=== PATIENT | female | born 2000 | race African-American/Black ===

== ENCOUNTER → 2025-07-22 | Outpatient (REF) | LOC: M LAB 11:10 | PROVIDERS: ATTEND Family Medicine | DX: Z02.89 Encounter for other administrative examinations (principal) ==

== ENCOUNTER → 2025-08-07 | Outpatient (CLI) | payer OTHER ==
[2025-08-07 17:09] LABS: LDH LACTATE DEHYDROGENASE 136 U/L (120-246)
[2025-08-07 17:10] LABS: ALT/SGPT 31 U/L (7.0-40); AST/SGOT 15 U/L (<34); CREATININE FOR GFR 0.78 MG/DL (0.55-1.30); GLOMERULAR FILTRATION RATE > 90.0 (>60)
[2025-08-07 17:23] LABS: PLATELET COUNT, AUTOMATED 333 10^3/uL (150-450); TOTAL PROTEIN,RANDOM URINE 21.5 MG/DL (0.0-14.0)
[2025-08-07 17:42] LABS: HIV 1&2 SCREEN NEGATIVE (NEGATIVE)
[2025-08-07 17:50] LABS: HEPATITIS C VIRUS ABY INDEX < 0.02 INDEX (<0.8)
[2025-08-08 12:48] LABS: Trichomonas vaginalis (AMP) NOT DETECTED (NEGATIVE)
[2025-08-08 13:12] LABS: GC DNA AMPLIFICATION NEGATIVE (NEGATIVE)
== END ==
LOC: M PLALAB 13:48
PROVIDERS: ATTEND Nurse Practitioner Family
DX: Z34.80 Encounter for supervision of other normal pregnancy, unspecified trimester (principal)

== ENCOUNTER → 2025-08-07 | Outpatient (REF) | payer OTHER | LOC: M PLALAB 13:26 | PROVIDERS: ATTEND Nurse Practitioner Family | DX: Z53.9 Procedure and treatment not carried out, unspecified reason (principal) ==

== ENCOUNTER 2025-08-31 11:23 | Emergency (ER) | payer OTHER ==
[~2025-08-31] VITALS: Ht 154.9 cm; Wt 68.2 kg
[2025-08-31 11:25] VITALS: BP 138/66; TEMP 98.9; O2SAT 99
[2025-08-31 11:57] LABS: APPEARANCE, URINE CLEAR (CLEAR); BACTERIA, URINE AUTO NEGATIVE (NEGATIVE); BILIRUBIN, URINE AUTO NEGATIVE (NEGATIVE); BLOOD, URINE BLOOD NEGATIVE (NEGATIVE); GLUCOSE, URINE (UA) AUTO NEGATIVE (NEGATIVE); KETONE, URINE AUTO NEGATIVE (NEGATIVE); LEUKOCYTE ESTERASE, URINE AUTO NEGATIVE (NEGATIVE); NITRITE, URINE AUTO NEGATIVE (NEGATIVE); PROTEIN, URINE AUTO NEGATIVE (NEGATIVE); RBC, URINE AUTO 1 /HPF (0-3); SPECIFIC GRAVITY URINE AUTO 1.010 (1.002-1.035); SQUAMOUS EPITHELIAL CELL UR AU 1 /HPF (0-6); UROBILINOGEN, URINE AUTO 0.2 mg/dL (0.0-2.0); WBC, URINE AUTO 0 /HPF (0-3)
[2025-08-31 11:58] LABS: BASO # 0.0 10^3/uL (0.0-0.2); BASO % 0.3 % (0.0-1.0); EOS # 0.2 10^3/uL (0.0-0.5); EOS % 1.7 % (0.0-3.0); LYMPH # 1.8 10^3/uL (1.5-5.0); LYMPH % 20.3 % (24.0-44.0); MONO # 0.4 10^3/uL (0.0-0.8); MONO % 4.7 % (2.0-8.0); NEUTROPHILS # 6.5 10^3/uL (1.5-8.5); NEUTROPHILS % 72.6 % (36.0-66.0); PLATELET COUNT, AUTOMATED 316 10^3/uL (150-450)
[2025-08-31 12:26] LABS: CALCIUM LEVEL 9.1 MG/DL (8.5-10.1); CARBON DIOXIDE LEVEL 26 MMOL/L (20-31); CHLORIDE LEVEL 100 MMOL/L (98-107); CREATININE FOR GFR 0.57 MG/DL (0.55-1.30); GLOMERULAR FILTRATION RATE > 90.0 (>60); POTASSIUM SERUM 4.1 MMOL/L (3.5-5.1); SODIUM LEVEL 135 MMOL/L (136-145)
== END 2025-08-31 13:13 | disposition home or self-care (01) ==
LOC: M ED 11:23
DX: O20.0 Threatened abortion (principal); O20.9 Hemorrhage in early pregnancy, unspecified; Z3A.13 13 weeks gestation of pregnancy

== ENCOUNTER → 2025-09-04 | Outpatient (REF) | LOC: M LAB 14:38 | PROVIDERS: ATTEND Family Medicine | DX: Z02.1 Encounter for pre-employment examination (principal) ==

== ENCOUNTER → 2025-09-05 | Outpatient (CLI) | payer OTHER ==
[~2025-09-05] MED LIST: ASPI1CHW2; MULTTAB20 PO
== END ==
LOC: M PLALAB 11:44
PROVIDERS: ATTEND Nurse Practitioner Family
DX: Z34.80 Encounter for supervision of other normal pregnancy, unspecified trimester (principal)

== ENCOUNTER 2025-09-09 09:28 | Emergency (ER) | payer OTHER ==
[~2025-09-09] VITALS: Ht 154.9 cm; Wt 68.6 kg
[2025-09-09] MEDS ORDERED: ASPI1CHW2 (10:14)
[2025-09-09] MEDS ORDERED: MULTTAB20 PO (10:14)
[2025-09-09 11:06] LABS: BASO # 0.0 10^3/uL (0.0-0.2); BASO % 0.4 % (0.0-1.0); EOS # 0.1 10^3/uL (0.0-0.5); EOS % 1.2 % (0.0-3.0); LYMPH # 1.5 10^3/uL (1.5-5.0); LYMPH % 17.3 % (24.0-44.0); MONO # 0.4 10^3/uL (0.0-0.8); MONO % 4.9 % (2.0-8.0); NEUTROPHILS # 6.4 10^3/uL (1.5-8.5); NEUTROPHILS % 75.5 % (36.0-66.0); PLATELET COUNT, AUTOMATED 322 10^3/uL (150-450)
[2025-09-09 11:30] LABS: ALT/SGPT 13 U/L (7.0-40); AST/SGOT 12 U/L (<34); CALCIUM LEVEL 8.3 MG/DL (8.5-10.1); CARBON DIOXIDE LEVEL 25 MMOL/L (20-31); CHLORIDE LEVEL 105 MMOL/L (98-107); CREATININE FOR GFR 0.53 MG/DL (0.55-1.30); GLOMERULAR FILTRATION RATE > 90.0 (>60); POTASSIUM SERUM 4.1 MMOL/L (3.5-5.1); SODIUM LEVEL 137 MMOL/L (136-145)
[2025-09-09 13:54] VITALS: BP 123/82; TEMP 98; O2SAT 99
[2025-09-10 03:19] LABS: HIV 1&2 SCREEN NEGATIVE (NEGATIVE)
[2025-09-10 03:27] LABS: HEPATITIS C VIRUS ABY INDEX 0.04 INDEX (<0.8)
== END 2025-09-09 13:56 | disposition home or self-care (01) ==
LOC: M ED 09:28
DX: O26.892 Other specified pregnancy related conditions, second trimester (principal); S61.032A Puncture wound without foreign body of left thumb without damage to nail, initial encounter; Z77.21 Contact with and (suspected) exposure to potentially hazardous body fluids; W46.1XXA Contact with contaminated hypodermic needle, initial encounter; Z3A.15 15 weeks gestation of pregnancy; Y92.239 Unspecified place in hospital as the place of occurrence of the external cause; Y93.89 Activity, other specified; Y99.0 Civilian activity done for income or pay; Z79.82 Long term (current) use of aspirin; Z79.899 Other long term (current) drug therapy